=== PATIENT | female | born 1945 | race Caucasian/White ===

== ENCOUNTER 2021-09-06 23:43 | Emergency (ER) | payer MEDICARE, OTHER, SELFPAY ==
[2021-09-06 23:57] VITALS: BP 198/79; PULSE 89; RESP 20; TEMP 36.4; O2SAT 98; BMI 28.3
--- NOTE | 2021-09-07 00:17 | CRLHL7_ITS ---
For Patients: As a result of the Cures Act, medical imaging exams and procedure reports are released immediately into your electronic medical record. You may view this report before your referring provider. If you have questions, please contact your health care provider. INDICATION: Shortness of breath TECHNIQUE: Chest radiograph 2 views COMPARISON: None FINDINGS: Mediastinum: The mediastinum is normal in appearance. The heart silhouette is normal in size and morphology. Lung: Mild linear atelectasis is seen in the left lung base. No sign of pleural effusion seen. No pneumothorax is identified. Bone and Soft tissue: Unremarkable for age. IMPRESSION: 1. Mild linear atelectasis is seen in the left lung base. Dictated by Eduin Washington MD @ 09/07/2021 1:12:04 AM Dictated by: Eduin Washington MD @ 09/07/2021 01:12:10 (Electronically Signed)
[2021-09-07 00:39] LABS: Basophils Absolute Auto 0.03 K/uL (0.00-0.30); Basophils Percent Auto 0.5 % (0.0-3.0); Eosinophils Percent Auto 7.3 % (0.0-7.0); Hematocrit 37.1 % (33.0-51.0); Hemoglobin* 12.2 gm/dL (12.0-16.0); Immature Granulocytes Abs Auto 0.01 K/uL (0.00-0.30); Lymphocytes Percent Auto 36.4 % (20-44); Mean Corpuscular HGB Conc 33 gm/dL (32-36); Mean Corpuscular Hemoglobin 30 pg (26-34); Mean Corpuscular Volume 90 fL (80-100); Neutrophils Absolute Auto 3.15 K/uL (1.7-7.0); Neutrophils Percent Auto 47.6 % (42.0-72.0); Platelet Count* 252 K/uL (140-440); RDW Coefficient of Variation % 13.6 % (11.5-15.5); Red Blood Count 4.13 m/uL (4.00-5.20)
[2021-09-07 00:41] LABS: Slide Review Reflex No
[2021-09-07 00:52] LABS: Chloride* 106 mmol/L (96-114); Potassium* 3.9 mmol/L (3.6-5.1); Sodium* 140 mmol/L (135-149)
[2021-09-07 00:55] LABS: Blood Urea Nitrogen* 14 mg/dL (7-30); Carbon Dioxide* 29 mmol/L (20-32); Creatinine* 0.8 mg/dL (0.5-1.5); Est. Creatinine Clearance* 33.84; Estimated Glomerular Filt Rate 75.84
[2021-09-07 00:56] LABS: Calcium* 8.8 mg/dL (8.4-10.6); Glucose* 103 mg/dL (60-115)
--- NOTE | 2021-09-07 00:59 | ED.SOB ---
HPI - SOB/Dyspnea General Time Seen by Provider: 00:58 Date Seen: 09/07/21 Chief Complaint: High Blood Pressure Stated Complaint: Elevated blood pressure Time Seen by Provider: 09/06/21 23:43 Source: patient Mode of arrival: ambulatory Limitations: no limitations History of Present Illness HPI Narrative: Patient is a kandice 76-year-old female who presents here with 2 problems no problem 1. Is elevated blood pressure all day long she has been taking her blood pressure on off during the whole day. Getting readings in the 190-180 range. She says this causes her anxiety and worried that there may be something else going on. She also has some very mild shortness of breath with this sounds like it is more of a chronic issue she has had. She says there is no limitation with walking around, she can walk up to 45 minutes without stopping. She denies any PND orthopnea, cough fevers chills or any chest pain associated with this. She was recently started on lisinopril 5 mg a day in early part of August secondary to elevated blood pressures. She also takes propranolol for essential tremor per her neurologist. She spoke to her neurologist approximately a week ago. She was also started on aspirin 81 mg, as there was some question of whether she had either allergic reaction or possibly a TIA. She has had no further issues associated with this. She does have multiple risk factors for heart disease including a strong family history of heart disease she has had no previous heart attacks that she knows about and has had no previous workup for this. She does have a history of asthma and says that she thinks this may be part of the cause, but has not been using her inhaler more. Pertinent past history: asthma Onset (ago): week(s) Known history of: asthma Associated symptoms: denies other symptoms Treatment prior to arrival: none Related Data Home oxygen amount: none Home Medications Medication Instructions Recorded Confirmed albuterol sulfate 90 mcg/actuation 2 puff INHALATION Q4-6H PRN 09/06/21 09/06/21 aerosol inhaler (Ventolin HFA) desvenlafaxine succinate 100 mg 100 mg PO DAILY 09/06/21 09/06/21 tablet,extended release 24 hr famotidine 40 mg tablet 40 mg PO DAILY 09/06/21 09/07/21 lisinopril 5 mg tablet 5 mg PO DAILY 09/07/21 09/07/21 montelukast 10 mg tablet 10 mg PO DAILY 09/07/21 09/07/21 propranolol 80 mg capsule,24 80 mg PO DAILY 09/07/21 09/07/21 hr,extended release simvastatin 10 mg tablet 10 mg PO HS 09/07/21 09/07/21 trazodone 100 mg tablet 100 mg PO DAILY 09/07/21 09/07/21 Allergies Allergy/AdvReac Type Severity Reaction Status Date / Time No Known Drug Allergies Allergy Verified 09/06/21 23:58 Review of Systems Status of ROS: Reports: 10 or more systems reviewed and unremarkable except as noted in History and below Exam Const: Vital Signs, click to edit/add: Vital Signs - 24 hr 09/06/21 23:57 09/07/21 01:47 Temperature 97.6 F Pulse Rate [Left P ulse Oximeter] 89 69 Respiratory Rate 20 16 Blood Pressure [Ri ght Upper Arm] 198/79 H 152/81 H Pulse Oximetry 98 98 Documenting provider has reviewed patient's vital signs: yes Common normals: no apparent distress General appearance: cooperative Orientation/consciousness: Yes awake HENMT: Common normals: normocephalic, head/scalp atraumatic, hearing grossly normal bilaterally, external ears normal, EAC's normal, TM's normal bilaterally, external nose normal, nasal mucous membranes and turbinates normal, moist oral mucous membranes, oropharynx normal, dentition normal and gingiva normal Head and scalp: normocephalic and atraumatic Nose: external nose normal and nasal mucous membranes and turbinates normal External ear: external ears normal External auditory canal: EAC's normal Tympanic membrane: TM's normal bilaterally Eye: Common normals: PERRL, EOMs intact bilaterally, conjunctivae normal, no scleral icterus, no papilledema, normal visual montero by confrontation and fundi normal bilaterally Conjunctiva: conjunctiva(e) normal Pupil: PERRL Direct Ophthalmoscopy: no papilledema and fundi normal bilaterally Neck & C-Spine: Common normals: full ROM, no lymphadenopathy, supple, no meningeal signs, no JVD, thyroid normal and no carotid bruits General: no JVD Thyroid: thyroid normal Chest: Common normals: inspection of chest normal, palpation of chest normal, inspection of breasts normal and palpation of breasts normal Resp: Common normals: normal respiratory effort, no retractions, no use of accessory muscles, clear to auscultation bilaterally and percussion normal Auscultation: clear to auscultation bilaterally Percussion: percussion normal Cardio: Common normals: no JVD, regular rate, regular rhythm, S1 normal heart sound, S2 normal heart sound, no gallops, no clicks, no murmurs, no rub and peripheral pulses 2+ throughout Jugular venous distention: no JVD and no other Palpation: normal PMI Rate: regular rate Rhythm: regular rhythm Heart sounds: S1 normal and S2 normal Peripheral pulses: pulses 2+ throughout GI: Common normals: Normal to inspection, nondistended, normoactive bowel sounds present, soft to palpation, non-tender, no hepatosplenomegaly and no masses Palpation: soft and no hepatosplenomegaly : Common normals: no CVA tenderness Bladder/kidney exam: no CVA tenderness Back & Pelvis: Common normals: no CVA tenderness, thoracic and lumbar spine normal to inspection, no thoracic nor lumbar tenderness and thoraco-lumbar ROM normal Neuro: Sensorium/orientation: awake Meningeal signs: no meningeal signs Skin: Common normals: no rashes or lesions noted, no wounds, skin turgor normal and no jaundice Narrative: 1+ edema bilaterally in her lower extremities General skin exam: no rashes or lesions noted and turgor normal Course Vital Signs Vital signs: Initial Vital Signs Temperature 97.6 F 09/06/21 23:57 Temperature Source Temporal Artery Scan 09/06/21 23:57 Pulse Rate 89 09/06/21 23:57 Respiratory Rate 20 09/06/21 23:57 Blood Pressure 198/79 H 09/06/21 23:57 Blood Pressure Mean 118 09/06/21 23:57 Blood Pressure Position Sitting 09/06/21 23:57 Pulse Oximetry 98 09/06/21 23:57 Oxygen Delivery Method 09/06/21 23:57 Vital Signs Temperature 97.6 F 09/06/21 23:57 Pulse Rate 89 09/06/21 23:57 Respiratory Rate 20 09/06/21 23:57 Blood Pressure 198/79 H 09/06/21 23:57 Pulse Oximetry 98 09/06/21 23:57 Temperature 97.6 F 09/06/21 23:57 Pulse Rate 69 09/07/21 01:47 Respiratory Rate 16 09/07/21 01:47 Blood Pressure 152/81 H 09/07/21 01:47 Pulse Oximetry 98 09/07/21 01:47 MDM - SOB/Dyspnea MDM Narrative Medical decision making narrative: Life-threatening differential diagnosis includes occluded COPD exacerbation, pulmonary edema, acute coronary syndromes, pulmonary embolism, pneumonia, and pneumothorax. Other differential diagnosis considerations include asthma, bronchitis as well as other etiologies Differential Diagnosis Differential diagnosis: Likely acute exacerbation of chronic obstructive airways disease, congestive heart failure, community acquired pneumonia, asthma with exacerbation and pulmonary embolism Medical Records Attestation: I reviewed the patient's medical records. Lab Data Attestation: I reviewed the patient's lab results. Labs: Lab Results 09/07/21 09/07/21 09/07/21 Range/Units 00:30 00:30 00:35 WBC 6.60 (4.50-11.00) K/uL RBC 4.13 (4.00-5.20) m/uL Hgb 12.2 (12.0-16.0) gm/dL Hct 37.1 (33.0-51.0) % MCV 90 (80-100) fL MCH 30 (26-34) pg MCHC 33 (32-36) gm/dL RDW Coeff of Gabby 13.6 (11.5-15.5) % Plt Count 252 (140-440) K/uL Neut % (Auto) 47.6 (42.0-72.0) % Lymph % (Auto) 36.4 (20-44) % [place] % (Auto) 8.0 (0.0-11.0) % Eos % (Auto) 7.3 H (0.0-7.0) % Baso % (Auto) 0.5 (0.0-3.0) % Neut # (Auto) 3.15 (1.7-7.0) K/uL Lymph # (Auto) 2.40 (0.90-2.90) K/uL [place] # (Auto) 0.50 (0.00-0.90) K/UL Eos # (Auto) 0.50 (0.00-0.50) K/uL Baso # (Auto) 0.03 (0.00-0.30) K/uL Abs Immat Gran (auto) 0.01 (0.00-0.30) K/uL Sodium 140 (135-149) mmol/L Potassium 3.9 (3.6-5.1) mmol/L Chloride 106 (96-114) mmol/L Carbon Dioxide 29 (20-32) mmol/L BUN 14 (7-30) mg/dL Creatinine 0.8 (0.5-1.5) mg/dL Estimated Creat Clear 33.84 Glucose 103 (60-115) mg/dL Calcium 8.8 (8.4-10.6) mg/dL POC Troponin I 0.00 L (0.01-0.04) ng/ml BNP is pending at the time of this dictation the rest of her blood tests looked outstanding including a negative troponin, I think it would be reasonable at this point to discharge her home. Went over signs and symptoms of worsening condition. There likely is a strong anxiety component to this. As her blood pressure came down nicely to the 150 range systolic. Imaging Data Chest x-ray: Attestation: I have reviewed the pertinent imaging results. My impression: Two-view chest for x-ray is reviewed. No evidence of pneumothorax, I do not see any evidence of significant infiltrate cardiomegaly or other abnormality by my review Radiologist's impression: Patient: BETH JUAN Facility:?[facility] Patient ID:?[id number] Site Patient ID:?[id number]. Site :?[id number] Study:?XRay Chest PA AND LATERAL-09/07/2021 1:10:13 AM Ordering Physician:Radha Simeon Final Report: INDICATION: Shortness of breath TECHNIQUE: Chest radiograph 2 views COMPARISON: None FINDINGS: Mediastinum: The mediastinum is normal in appearance. The heart silhouette is normal in size and morphology. Lung: Mild linear atelectasis is seen in the left lung base. No sign of pleural effusion seen. No pneumothorax is identified. Bone and Soft tissue: Unremarkable for age. IMPRESSION: 1. Mild linear atelectasis is seen in the left lung base. Dictated by Eduin Washington MD @ 09/07/2021 1:12:04 AM Dictated by: Eduin Washington MD @ 09/07/2021 01:12:10 (Electronic Signature) ECG Data Attestation: I personally reviewed and interpreted this ECG as follows: ECG interpretation date: 09/07/21 ECG interpretation time: 01:05 Prior ECG tracings: not available for review Interpretation: Normal sinus rhythm with a ventricular rate of 71. She has a right bundle-branch block. No acute ST wave changes are noted. Discharge Plan Discharge Clinical Impression: Elevated blood pressure reading, Short of breath on exertion Instructions: Shortness of Breath (ED) Additional Instructions: Discharge home at this time recommend follow-up with primary care within the week. Consideration of stress testing given family history. Return here if increasing chest pain shortness of breath or other issues continue take medications as directed, I would not change her medications currently. Activity Level: No Restrictions Prescriptions: No Action albuterol sulfate [Ventolin HFA] 90 mcg/actuation HFA aerosol inhaler 2 puff INHALATION Q4-6H [id number] Label Comments: INHALE 2 PUFFS BY MOUTH EVERY 4 TO 6 HOURS NEEDED desvenlafaxine succinate 100 mg tablet extended release 24 hr 100 mg PO DAILY 0RF famotidine 40 mg tablet 40 mg PO DAILY 0RF lisinopril 5 mg tablet 5 mg PO DAILY 0RF Label Comments: TAKE ONE TABLET BY MOUTH ONE TIME DAILY montelukast 10 mg tablet 10 mg PO DAILY 0RF propranolol 80 mg capsule,extended release 24 hr 80 mg PO DAILY 0RF Label Comments: TAKE ONE CAPSULE BY MOUTH IN THE MORNING simvastatin 10 mg tablet 10 mg PO HS 0RF trazodone 100 mg tablet 100 mg PO DAILY 0RF Follow Up/Referrals: Lolita Nguyen PA-C [Primary Care Provider] -
[2021-09-07 01:47] VITALS: BP 152/81; PULSE 69; RESP 16; O2SAT 98
[2021-09-07 02:05] VITALS: BP 152/61; PULSE 78; RESP 16; TEMP 36.4
[2021-09-07 03:07] LABS: NT Pro B Type NatriureticPept* 575 PG/mL (0-450)
== END 2021-09-07 02:06 | disposition home or self-care (01) ==
LOC: ED 09-07 01:09
PROVIDERS: Emergency Provider Family Medicine; PCP Physician Assistant Medical
DX: R06.02 Shortness of breath (principal); R03.0 Elevated blood-pressure reading, without diagnosis of hypertension
CPT/HCPCS: 36415; 71046; 80048; 83880; 84484; 85025; 93005; 99284